=== PATIENT | male | born 1950 | race Caucasian/White ===

== ENCOUNTER 2018-04-15 08:54 | Day surgery (SDC) | payer MEDICARE, OTHER ==
[~2018-04-15 08:54] MED LIST: HYDROmorphone HCL/PF 2 MG/ML VIAL ONE; LACTATED RINGERS 1,000 ML IV.SOLN IV ONE; MIDAZOLAM HCL 2 MG/2 ML VIAL ONE; ePHEDrine SULFATE 50 MG/1 ML IVP ONE
[2018-04-15] MEDS ORDERED: LACTATED RINGERS 1,000 ML IV ONE ×2 (10:08→13:03)
[2018-04-15] MEDS ORDERED: LEVALBUTEROL HCL 1.25 MG/3 ML AMPUL.NEB NEB ONE (10:10)
[2018-04-15] MEDS ORDERED: FAMOTIDINE 20 MG/2 ML VIAL ONE (10:10)
[2018-04-15] MEDS ORDERED: oxyCODONE/ACETAMINOPHEN 5/325 TABLET PO ONE (19:03)
== END 2018-04-15 20:10 ==
LOC: OPSURG 08:54
PROVIDERS: ATTEND Orthopaedic Surgery
DX: M48.061 Spinal stenosis, lumbar region without neurogenic claudication (principal)
CPT/HCPCS: 63030; 77003; J1170; J2250; J7614; A9270-GY; J7120

== ENCOUNTER 2018-09-01 12:53 | Day surgery (SDC) | payer MEDICARE, OTHER ==
[~2018-09-01 12:53] MED LIST changes: +BUPIV. HCL 0.5% (5MG/ML)/EPI. (1:200,000) PF 30 ML VIAL IJ ONE; -HYDROmorphone HCL/PF 2 MG/ML VIAL ONE; +IOHEXOL 240 MG/ML BOTTLE 50 ML ONE; +LIDOCAINE HCL 1% PF 300MG/30ML VIAL ONE; +MORPHINE SULFATE 10 MG/ML VIAL ONE; -ePHEDrine SULFATE 50 MG/1 ML IVP ONE; +fentaNYL CITRATE/PF 100 MCG/2 ML INJ. ONE
== END 2018-09-01 16:00 | disposition home or self-care (01) ==
LOC: OPSURG 12:53
PROVIDERS: ATTEND Physical Medicine & Rehabilitation
DX: M17.12 Unilateral primary osteoarthritis, left knee (principal); Z96.652 Presence of left artificial knee joint
CPT/HCPCS: 64640; J2001; J2250; J2270; J3010; J7120

== ENCOUNTER 2018-09-28 12:00 | Day surgery (SDC) | payer MEDICARE, OTHER ==
[~2018-09-28 12:00] MED LIST changes: +DEXMEDETOMIDINE HCL 200 MCG/2 ML VIAL IV ONE; -MORPHINE SULFATE 10 MG/ML VIAL ONE
== END 2018-09-29 14:25 ==
LOC: OPSURG 12:00
PROVIDERS: ATTEND Physical Medicine & Rehabilitation
DX: M25.561 Pain in right knee (principal); M17.11 Unilateral primary osteoarthritis, right knee
CPT/HCPCS: 64640; J2001; J2250; J3010; J7120